=== PATIENT | male | born 1995 | race Caucasian/White ===

== ENCOUNTER 2017-07-26 21:29 | Emergency (ER) | payer MEDICAID, SELFPAY ==
[2017-07-26 21:30] VITALS: BP 108/58; PULSE 117; RESP 18; TEMP 37.4; O2SAT 95; BMI 22.8
--- NOTE | 2017-07-26 22:22 | ED.VISSUMM ---
- ER Visit Summary Date of Service: 07/26/17 Chief Complaint: I am sick History of Present Illness: The patient is a 22 M who states that last night he developed fever cough rhinorrhea headache and body aches. No rash or vomiting or diarrhea. No ear pain. No sore throat. Patient denies any photophobia or stiff neck. As I walked into the room the patient informs me he needs to be seen now or else he is leaving. He has been here 40 minutes with viral syndrome complaints in the peak influenza season on a Wednesday. Physical Examination: 99.3 heart rate 117 respirations are 18 pulse ox 95% blood pressure 108/58 Gen: Well-nourished well-developed Head: Normocephalic atraumatic Eyes: Perrl EOMI ENT: TMs clear congestion moist mucous membranes Neck: Supple no lymphadenopathy no JVD nontender CVS: Tachycardic regular rate rhythm no murmurs normal S1-S2 Respiratory: No distress clear to auscultation bilaterally chest nontender Abdomen: Soft nontender nondistended normal bowel sounds no masses Back: Nontender Extremity: Nontender no edema Skin: Normal color no rash Neuro: alert orientated ?3 CN II-XII intact normal strength sensation reflexes gait cerebellar Psych: Angry and rude Emergency Department Course and Treatment: Chest x-ray Tylenol and ibuprofen were ordered however the patient left the emergency room without telling anybody. I suspect he has influenza though the patient adamantly disagrees with that diagnosis. Impression:. Viral syndrome This note was generated with [employer] dictation software. It may contain incorrect words, spelling, and punctuation that were not noted in review of the chart prior to signing ED Disposition - Plan for ED Patient: Chief Complaint: Fever Referrals: Bruce Houston III, MD [Primary Care Provider] -
--- NOTE | 2017-07-26 22:32 | NURSING ---
after the pt was seen by the doctor I went into the pt room to give him his medication and let him know that he would be getting a chest xray. the pt was not in the room and neither was his family member. I looked in the restrooms and waiting room for the pt and gave him 10 minutes to get back to his room. the pt never came back into his room and left without me giving his medications and xray. the doctor was made aware.
== END 2017-07-26 22:46 | disposition home or self-care (01) ==
LOC: ED 22:42
PROVIDERS: Emergency Provider Emergency Medicine; Family Provider Family Medicine; PCP Family Medicine
DX: B34.9 Viral infection, unspecified (principal); R50.9 Fever, unspecified; R05 Cough; R51 Headache; M79.1 Myalgia; Z72.0 Tobacco use
CPT/HCPCS: 99282

== ENCOUNTER 2021-04-21 06:30 | Emergency (ER) | payer SELFPAY ==
[2021-04-21 06:31] VITALS: BP 128/78; PULSE 57; RESP 18; TEMP 36.6; O2SAT 97; BMI 24.3
--- NOTE | 2021-04-21 07:17 | EDS_ITS ---
HPI History of Present Illness Chief Complaint: Back Narrative Narrative: 26-year-old male presenting with lower to mid back pain. He states that started hurting this morning when he woke up. He denies any injury that he knows of. He states this is happened to him a couple of times over the past 2 weeks. He does not have any nausea or vomiting. He denies any urinary complaints. He has no diarrhea or constipation. He does not have any paresthesias. No loss of bladder or bowel control. 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 He states this hurts worse when he is twisting his trunk. It is better when he is resting. He states that his girlfriend was going to give him a heating pad but he did not want this. He states that he did not take ibuprofen or Tylenol because he thought this would make it worse. PFSH PFSH Home Medications NK 07/26/17 [History Last Taken Unknown] cyclobenzaprine 10 mg PO TID PRN #20 tablet 04/21/21 [Rx Last Taken Unknown] naproxen [Naprosyn] 500 mg PO BID PRN #30 tab 04/21/21 [Rx Last Taken Unknown] Allergy/AdvReac Type Severity Reaction Status Date / Time No Known Allergies Allergy Verified 07/26/17 21:33 Surgical History History of ankle surgery Social History Smoking Status: Unknown if ever smoked ROS [facility] ED Constitutional Constitutional ED: Denies chills or fever(s) Eyes Eyes: Denies blurry vision or change in vision ENT ENT ED: Denies rhinorrhea or sore throat Cardiovascular Cardiovascular: Denies chest pain or palpitations Respiratory/Chest Respiratory/Chest: Denies dyspnea or sputum Gastrointestinal Gastrointestinal: Denies abdominal pain, constipation, diarrhea, nausea or vomiting Genitourinary Genitourinary ED: Denies dysuria, hematuria or urinary frequency Musculoskeletal Musculoskeletal: Reports back pain; Denies arthralgias Integumentary Denies rash Neurologic Neurologic: Denies headache(s) or paresthesias Psychiatric Psychiatric: Denies anxiety or depression EXAM Physical Exam Const Vital Signs: 04/21/21 06:31 Temperature 97.9 F Temperature Source Temporal Pulse Rate 57 L Respiratory Rate 18 Blood Pressure 128/78 H Blood Pressure Mean 94 Pulse Ox 97 Oxygen Delivery Method Room Air Positive well nourished General Appearance ED: NAD HEENT Reports moist mucous membranes Negative for trauma Eyes PERRL and EOMs intact bilaterally Resp normal respiratory effort GI normal to inspection, nondistended, normoactive bowel sounds Back/Spine Back/Spine Narrative: Tenderness to palpation bilaterally at the level of T12-L1 and the paraspinal musculature. No midline spinal tenderness, deformity, step- off. Patient able to move from lying, to sitting, to standing without difficulty. He has no CVA tenderness. Neuro oriented x3 Sensorium / Orientation: alert Motor Exam: strength 5/5 throughout Psych mental status grossly normal Skin no rashes or lesions noted MDM MDM MDM Narrative Medical decision making narrative: Patient's examination is consistent with m usculoskeletal tenderness. There is no midline spinal tenderness. The pain is symmetrically tender bilaterally with palpation to the paraspinal musculature. Patient does not seem to have any difficulty lying, sitting, or standing. He has no neurologic deficits. He does not have any CVA tenderness to suggest a kidney stone and it is bilateral so this is less likely. Patient was counseled that this is generally treated with muscle relaxers and anti-inflammatories. I also explained to him that typically this require follow-up with his primary care if is not improving he can physical therapy. He stated that he used to see Dr. Houston but he is retired and has not established with a new doctor yet. I offered to give him Norflex and Toradol in the ED, however he stated that he wanted to go to work today and he did not want a muscle relaxer. I offered to give him a work note so that he could stay at home and rest, however he stated that he needed to go to work. I then offered to give him a shot of Toradol and provide a muscle relaxer prescription for him however at this point the patient stated that he did not want to stay anymore. He became angry and walked out of the room. I will send a prescription for Naprosyn and Flexeril should he want this. Impression: 1. Back strain Discharge Plan Triage Chief Complaint: Back ED Provider: Ty Osullivan Dx/Rx/DC Orders Instructions: ED Back Sprain/Strain Prescriptions: New cyclobenzaprine 10 mg tablet 10 mg PO TID PRN (Reason: Muscle Spasm) Qty: 20 RF: 0 naproxen [Naprosyn] 500 mg tablet 500 mg PO BID PRN (Reason: pain) Qty: 30 RF: 0 No Action NK RF: 0 Primary Care Provider: NOT,DEFINED Referrals: NOT,DEFINED [Primary Care Provider] - Disposition Disposition: Elopement
--- NOTE | 2021-04-21 08:13 | ED.RN ---
PT LEFT WHILE BEING SEEN BY THE DR. PT DID LEFT PRIOR TO RECEIVING D/C PAPERS.
== END 2021-04-21 07:05 | disposition left against medical advice (07) ==
PROVIDERS: Emergency Provider Student in an Organized Health Care Education/Training Program
DX: S39.012A Strain of muscle, fascia and tendon of lower back, initial encounter (principal); X58.XXXA Exposure to other specified factors, initial encounter; Y93.9 Activity, unspecified; Y92.9 Unspecified place or not applicable; Y99.9 Unspecified external cause status
CPT/HCPCS: 99282

== ENCOUNTER 2023-05-04 13:58 | Emergency (ER) | payer SELFPAY ==
[2023-05-04 13:59] VITALS: BP 112/50; PULSE 66; RESP 18; TEMP 36.6; O2SAT 96; BMI 24.2
--- NOTE | 2023-05-04 14:26 | RAD_ITS ---
STUDY: X-RAY - UNILATERAL RIBS ( LEFT ) WITH CHEST REASON FOR EXAM: Male, 28 years old. Pain. TECHNIQUE - RIBS: 4 views of the left ribs. TECHNIQUE - CHEST: Single PA view of the chest. COMPARISON: None. FINDINGS - RIBS: Normal visualized left ribs without a demonstrated fracture. FINDINGS - CHEST: The lungs are clear and expanded. There is no demonstrated pleural abnormality. Normal size heart. Normal mediastinum and nicanor. Normal visualized pulmonary arteries. Normal visualized aortic arch and descending thoracic aorta. Normal visualized thoracic spine. Normal visualized ribs, clavicles, and shoulders. There is no demonstrated abnormality of the visualized soft tissue structures of the upper abdomen. RAD/Ribs Uni Min 3V w/PA Chest IMPRESSION: RIBS: Normal x-ray examination of the left ribs. CHEST: Normal x-ray examination of the chest. Electronically Signed: Rober Okeefe MD at 15:26 EST ,
--- NOTE | 2023-05-04 14:27 | EDS_ITS ---
HPI History of Present Illness Chief Complaint: Chest Other Detail of Chief Complaint: Left rib pain Informant: patient Onset/Context/Timing Onset: Days (6 days ago) Context: Gradual Onset Narrative Narrative: Patient presents with a 6-day history of left lower rib pain that wraps around his side. He states he works out on a regular basis but took and Wed day off because of pain. He states he now has increasing pain with deep breathing or twisting. He is taken a total of 3 doses of ibuprofen in the past week for his pain. There was no fall or direct trauma. PFSH PFSH Medical History no medical history no medical history Home Medications cyclobenzaprine 10 mg tablet 10 mg PO TID PRN Muscle Spasm #20 TABLETS 04/21/21 [Rx Last Taken Unknown] naproxen 500 mg tablet (Naprosyn) 500 mg PO BID PRN pain #30 tabs 04/21/21 [Rx Last Taken Unknown] cyclobenzaprine 10 mg tablet 10 mg PO TID PRN Muscle Spasm #20 TABLETS 05/04/23 [Rx Last Taken Unknown] naproxen 500 mg tablet (Naprosyn) 500 mg PO BID PRN pain #20 tabs 05/04/23 [Rx Last Taken Unknown] Allergy/AdvReac Type Severity Reaction Status Date / Time No Known Allergies Allergy Verified 05/04/23 13:58 Surgical History History of ankle surgery Social History Smoking Status: Unknown if ever smoked ROS [facility] ED Constitutional Constitutional ED: Denies chills or fever(s) Eyes Eyes: Denies discharge from eye(s) ENT ENT ED: Denies discharge from eye(s), rhinorrhea or sore throat Cardiovascular Cardiovascular: Reports chest pain; Denies palpitations Respiratory/Chest Respiratory/Chest: Reports dyspnea; Denies cough Gastrointestinal Gastrointestinal: Denies abdominal pain, nausea or vomiting Musculoskeletal Musculoskeletal: Denies extremity pain Integumentary Denies Abrasions or rash Neurologic Neurologic: Denies headache(s) or weakness Psychiatric Psychiatric: Denies anxiety or depression Allergic/Immunologic Allergic/Immunologic ED: Denies lip swelling or urticaria EXAM Physical Exam Const Vital Signs: 05/04/23 13:59 Temperature 97.9 F Temperature Source Temporal Pulse Rate 66 Respiratory Rate 18 Blood Pressure 112/50 L Blood Pressure Mean 70 Pulse Ox 96 Oxygen Delivery Method Room Air Positive well nourished and well developed General Appearance ED: well developed HEENT Reports moist mucous membranes Eyes EOMs intact bilaterally Chest Wall inspection of chest normal and palpation of chest normal Resp normal respiratory effort and clear to auscultation bilaterally Cardio regular rate and regular rhythm GI non-tender Palpation: soft Back/Spine Back/Spine Narrative: Tenderness palpation over the left lateral lower chest wall, near where the cartilage and bone meet in the rib cage. No crepitus. No overlying skin changes. Extremity normal to inspection Neuro oriented x3 and no sensory deficits noted Motor Exam: strength 5/5 throughout Psych mental status grossly normal Skin no rashes or lesions noted MDM MDM MDM Narrative Medical decision making narrative: Rib series with chest x-ray obtained to evaluate for obvious rib fracture, dislocation, pneumothorax. Rib series with chest x-ray per my interpretation reveals no obvious bony fracture or displacement. No evidence of pneumothorax. Test results discussed with the patient. He will be started on anti- inflammatories along with muscle relaxers. We discussed the sedating side effects of the muscle relaxer. He has been seen at [facility] previously will be referred to Dr. Corral, next [facility] doc on the no doc list. Discharge Plan Triage Chief Complaint: Chest Other ED Provider: Charlene Rodriguez Dx/Rx/DC Orders Clinical Impression: Strain of chest wall Instructions: ED Chest Wall Strain Prescriptions: New naproxen [Naprosyn] 500 mg tablet 500 mg PO BID PRN (Reason: pain) Qty: 20 0RF cyclobenzaprine 10 mg tablet 10 mg PO TID PRN (Reason: Muscle Spasm) Qty: 20 0RF No Action cyclobenzaprine 10 mg tablet 10 mg PO TID PRN (Reason: Muscle Spasm) Qty: 20 0RF naproxen [Naprosyn] 500 mg tablet 500 mg PO BID PRN (Reason: pain) Qty: 30 0RF Primary Care Provider: Care Physician,No Primary Referrals: Rosemary Corral MD [Med Staff - Freelance Director] - 10-14 Days if not better Care Physician,No Primary [Primary Care Provider] - Disposition Disposition: Home, Self Care
[2023-05-04] MEDS: Naproxen 500 MG Tablet PO (15:40)
== END 2023-05-04 16:43 | disposition home or self-care (01) ==
PROVIDERS: Emergency Provider Emergency Medicine; Visit Provider Emergency Medicine
DX: S29.011A Strain of muscle and tendon of front wall of thorax, initial encounter (principal); X58.XXXA Exposure to other specified factors, initial encounter; Z79.899 Other long term (current) drug therapy
CPT/HCPCS: 71101; 99283

== ENCOUNTER 2023-08-15 17:19 | Emergency (ER) | payer BC, SELFPAY ==
[2023-08-15 17:19] VITALS: BP 178/127; PULSE 87; RESP 18; TEMP 36.3; O2SAT 98; BMI 24.6
--- NOTE | 2023-08-15 17:39 | EX.ED.UPPERE ---
HPI <JANETH Pillai - Last Filed: 08/15/23 18:17> History of Present Illness Chief Complaint: Upper Extremity Injury Narrative Narrative: 28-year-old [id number] male has had 2 to 3 weeks of left wrist pain along the base of the thumb. No injury. 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 He states the wrist pain is exacerbated with any motion of his thumb. He has no weakness or numbness or tingling. He is taking Tylenol. PFSH <JANETH Pillai - Last Filed: 08/15/23 18:17> [facility] Home Medications cyclobenzaprine 10 mg tablet 10 mg PO TID PRN Muscle Spasm #20 TABLETS 04/21/21 [Rx Last Taken Unknown] naproxen 500 mg tablet (Naprosyn) 500 mg PO BID PRN pain #30 tabs 04/21/21 [Rx Last Taken Unknown] cyclobenzaprine 10 mg tablet 10 mg PO TID PRN Muscle Spasm #20 TABLETS 05/04/23 [Rx Last Taken Unknown] naproxen 500 mg tablet (Naprosyn) 500 mg PO BID PRN pain #20 tabs 05/04/23 [Rx Last Taken Unknown] Allergy/AdvReac Type Severity Reaction Status Date / Time No Known Allergies Allergy Verified 05/04/23 13:58 Surgical History History of ankle surgery Social History Smoking Status: Current every day smoker tobacco type: e-cigarettes ROS <JANETH Pillai - Last Filed: 08/15/23 18:17> ROS ED ROS Narrative Neuro: Negative for motor/sensory dysfunction. Skin: Negative for rash. Musc: Positive for left wrist pain. No trauma. EXAM <JANETH Pillai - Last Filed: 08/15/23 18:17> Physical Exam Narrative Exam Narrative: CONST: Patient sitting in no acute distress. EYES: Normal inspection. NECK: Normal inspection. SKIN: Color normal, no rash, warm, dry, intact. EXTREMITIES: Normal appearance bilateral upper extremities. Tender along the tendons at the base of the thumb. No scaphoid tenderness. No hand tenderness. Full range of motion shoulder elbow wrist and hand. Normal motor and sensory function in median radial ulnar distributions. Patient can move his thumb but refuses to do the Duyen test saying this movement reproduces pain. 2+ radial pulse and brisk cap refill. NEURO: Oriented x4. PSYCH: Normal affect. Const Vital Signs: 08/15/23 17:19 Temperature 97.4 F L Temperature Source Temporal Pulse Rate 87 Respiratory Rate 18 Blood Pressure 178/127 H Blood Pressure Mean 144 Pulse Ox 98 Oxygen Delivery Method Room Air [facility] <JANETH Pillai - Last Filed: 08/15/23 18:17> [facility] Narrative Medical decision making narrative: Patient has atraumatic left wrist pain along the base of his thumb consistent with de Quervain's tenosynovitis. Neurovascular status intact. No trauma or indication for x-rays. I discussed symptomatic management with rest, ice, NSAIDs, and provided a thumb spica splint. Orthopedic referral given if needed. He was discharged in stable condition. <Dr. Tawanda Kline DO - Last Filed: 08/15/23 21:17> [facility] Narrative Medical decision making narrative: Patient has atraumatic left wrist pain along the base of his thumb consistent with de Quervain's tenosynovitis. Neurovascular status intact. No trauma or indication for x-rays. I discussed symptomatic management with rest, ice, NSAIDs, and provided a thumb spica splint. Orthopedic referral given if needed. He was discharged in stable condition. ED attending note: I evaluated the patient in conjunction with the FRANKY. I agree with his/her statements and above findings. I have personally performed a face to face assessment of the patient and have reviewed the FRANKY Note. I performed a substantive portion of the visit including all aspects of the following. I personally saw the patient performed chart review, physical exam, reviewed labs, imaging (if obtained), and formulated a treatment and management plan. This note was generated with [employer] dictation software. It may contain incorrect words, spelling, and punctuation that were not noted in review of the chart prior to signing. Discharge Plan Triage Chief Complaint: Upper Extremity Injury ED Midlevel Provider: Olga Lidia Roe ED Provider: Tawanda Kline Dx/Rx/DC Orders Clinical Impression: De Quervain's tenosynovitis, left Instructions: De Quervain Tenosynovitis Prescriptions: No Action cyclobenzaprine 10 mg tablet 10 mg PO TID PRN (Reason: Muscle Spasm) Qty: 20 0RF naproxen [Naprosyn] 500 mg tablet 500 mg PO BID PRN (Reason: pain) Qty: 30 0RF naproxen [Naprosyn] 500 mg tablet 500 mg PO BID PRN (Reason: pain) Qty: 20 0RF cyclobenzaprine 10 mg tablet 10 mg PO TID PRN (Reason: Muscle Spasm) Qty: 20 0RF Stand Alone Forms: ED Work / School Excuse Primary Care Provider: Care Physician,No Primary Referrals: Tima Allen DO [Med Staff - Active Staff] - Care Physician,No Primary [Primary Care Provider] - Activity Restrictions/Additional Instructions: The tendons along your thumb and wrist are swollen and inflamed. This is treated with rest, ice packs, ibuprofen 600 mg every 6 hours. You can alternate with Tylenol if needed. Use the splint to keep the thumb from moving. If this does not improve with conservative treatment see the orthopedic doctor. Disposition Disposition: Home, Self Care Discharge Date/Time: 08/15/23 19:03
--- OUTSIDE RECORDS SUMMARY | 2023-08-15 17:57 | XMS RPT_ITS | CCD ---
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 Name Role Phone PHYSICIAN, NOT RECORDED Primary Care Physician U navailable Problems Problem Classification Problem Date Documented Da te Episodic/Chronic Sprains and strains (1 source) Sprain of ankle; Translations: [Sprain of unspecified ligament of unspecified ankle, initial encounter] Onset: 11-08-2021 Episodic Results Test Name Value Interpretation Reference Range Facil ity Vital Signs Date Time Vital Sign Value Performing Clinician Faci lity 11-08-2021 20:57-0400 Body temperature 98.24 [degF] DR BRIAN LANE MD [facility] 11-08-2021 20:57-0400 Diastolic blood pressure 78 mm[Hg] DR BRIAN LANE MD [facility] 11-08-2021 20:57-0400 Heart rate 91 /min DR BRIAN LANE MD [facility] 11-08-2021 20:57-0400 Mean blood pressure 92 mm[Hg] DR BRIAN LANE MD [facility] 11-08-2021 20:57-0400 Respiratory rate 20 /min DR BRIAN LANE MD [facility] 11-08-2021 20:57-0400 Systolic blood pressure 119 mm[Hg] DR BRIAN LANE MD [facility] Encounters Encounter Date Encounter Type Care Provider Facility Start: 11-08-2021 End: 11-08-2021 Emergency department patient visit DR BRIAN LANE MD [facility] Social History Date Type Detail Facility Tobacco smoking status No Smoking Status Entered [facility] Sex Assigned At Male [facility] Functional Status Date Assessment Result Facility 11-08-2021 Functional Status Activity Veronica tance Independent [facility] 11-08-2021 Functional Status Standard Safet y ID band on, Call device within reach, Bed in low position, Wheels locked, Upper/Half-Length side-rails up, Phone within reach, Bedside Cart Locked [facility] Mental Status Date Assessment Result Facility 11-08-2021 Mental Status Orientation Oriented x 4 [facility] 11-08-2021 Mental Status [facility] Hospital Discharge instructions 11-08-2021 Note Date & Type Note Facility 11-08-2021 Hospital Discharg e instructions Patient Education 11/08/2021 21:53:08 Ankle Sprain (Adult) Ankle Sprain (Adult) An ankle sprain is a stretching or tearing of the ligaments that hold the ankle joint together. There are no broken bones. An ankle sprain is a common injury for both children and adults. It happens when the ankle turns, twists, or rolls in an awkward way. This can be caused by a sports injury. Or it can happen from doing something as simple as stepping on an uneven surface. Ligaments are made of tough connective tissue. Normally, ligaments stretch a certain amount and then go back to their normal place. A sprain happens when a ligament is forced to stretch more than the normal amount. A severe sprain can actually tear the ligaments. If you have a severe sprain, you may have felt or heard something like a pop when you were injured. Ankle sprains are given a grade depending on whether they are mild, moderate, or severe: Grade 1 sprain. A mild sprain with minor stretching and damage to the ligament. Grade 2 sprain. A moderate sprain where the ligament is partly torn. Grade 3 sprain. The most severe kind of sprain. The ligament is completely torn. Most sprains take about 4 to 6 weeks to heal. A severe sprain can take several months to recover. Your healthcare provider may order X-rays to be sure you don t have a fracture, or broken bone. The injured area will feel sore. Swelling and pain may make it hard to walk. You may need crutches if walking is painful. Or your provider may have you use a cast boot or air splint. This will depend on the grade of ankle sprain that you have. Home care For a Grade 1 sprain, use RICE (rest, ice, compression, and elevation): Rest your ankle. Don t walk on it. Ice should be used right away to help control swelling. Place an ice pack over the injured area for 20 minutes. Do this every 3 to 6 hours for the first 24 to 48 hours. Keep using ice packs to ease pain and swelling as needed. To make an ice pack, put ice cubes in a plastic bag that seals at the top. Wrap the bag in a clean, thin towel or cloth. Never put ice or an ice pack directly on the skin. The ice pack can be put right on the cast, bandage, or splint. As the ice melts, be careful that the cast, bandage, or splint doesn t get wet. If you have a boot, open it to apply an ice pack, unless told otherwise by your provider. Compression devices help to control swelling. They also keep the ankle from moving and support your injured ankle. These devices include dressings, bandages, and wraps. Elevate or raise your ankle above the level of your heart when sitting or lying down. This is very important for the first 48 hours. Follow the RICE guidelines for a Grade 2 sprain. This type of sprain will take longer to heal. Your provider may have you wear a splint, cast, or brace to keep your ankle from moving. If you have a Grade 3 sprain, you are at risk for long-term ankle instability. In rare cases, surgery may be needed. Your provider may have you wear a short leg cast or a walking boot for 2 to 3 weeks. After 48 hours, it may be helpful to apply heat for 20 minutes several times a day. You can do this with a heating pad or warm compress. Or you may want to go back and forth between using ice and heat. Never apply heat directly to the skin. Always wrap the heating pad or warm compress in a clean, thin towel or cloth. You may use deez-apj-xljbert pain medicine (NSAIDS or nonsteroidal anti-inflammatory drugs) to control pain, unless another pain medicine was prescribed. Talk with your provider before using these medicines if you have chronic liver or kidney disease, or have ever had a stomach ulcer or gastrointestinal bleeding. Follow any rehabilitation exercises your provider gives you. These can help you be more flexible and improve your balance and coordination. This is helpful in preventing long-term ankle problems. Prevention To help prevent ankle sprains, it s important to have good strength, balance, and flexibility. Be sure to: Always warm up before you exercise or do something very active Be careful when walking or running on uneven or cracked surfaces Wear shoes that are in good condition and fit well Listen to your body s signals to slow down when you are in pain or tired Follow-up care Any X-rays you had today don t show any broken bones, breaks, or fractures. Sometimes fractures don t show up on the first X-ray. Bruises and sprains can sometimes hurt as much as a fracture. These injuries can take time to heal completely. If your symptoms don t get better or they get worse, talk with your healthcare provider. You may need a repeat X-ray. Follow up with your healthcare provider, or as advised. Check for any warning signs listed below. When to seek medical advice Call your healthcare provider right away if any of these occur: Fever of 100.4 F (38 C) or higher, or as directed by your healthcare provider [place] The injury doesn t seem to be healing The swelling comes back The cast or splint has a bad smell The plaster cast or splint gets wet or soft The fiberglass cast or splint gets wet and does not dry for 24 hours The pain or swelling increases, or redness appears Your toes become cold, blue, numb, or tingly The skin is discolored (looks blue, purple, or hoff), has blisters, or is irritated You re-injure your ankle 0712-5720 [employer]. [address] [place] [address]. All rights reserved. This information is not intended as a substitute for professional medical care. Always follow your healthcare professional's instructions. Follow Up Care 11/08/2021 20:56:41 With:MICHELL BLUNT Address: [address] [place] [address] [address] [place] [address] Business (1) When:3-5 days Comments:Use Tylenol ibuprofen for pain, keep leg elevated with ice. You may use ankle splint. You may place weight on it as tolerated. If worsening pain or no improvement after 5 to 7 days please follow-up with orthopedics. [facility] Clinical Note 05-09-2021 Note Date & Type Note Facility 05-09-2021 Note Patient Outreach (NE TNAV) CHAD GA ([id number]) 1995 M Date Time Provider Department 05/09/21 MAHI RUTH During your visit today, we recorded the following information about you: Mahi Ruth Population Health Navigator 05/09/2021 9:01 AM Signed POPULATION HEALTH NAVIGATION OUTREACH Action/FY I spoke with patient scheduled him for a appointment and a financial clearance No care everywhere Updated PCP Contact made with patient or family member? YES Pt identified by name and : YES Outreach Outcome/Action Spoke to patient or caregiver: Patient scheduled PCP confirmed / updated Reason for Outreach Attribution: Provider Off-boarding Payer: No coverage found. Care Gap Reviewed:: Annual Wellness visit Reminder: Reminder note to check Health Maintenance for items below Health Maintenance items due: COVID-19 VACCINE(1) Never done HEPATITIS C SCREENING Never done HIV SCREENING Never done ONE PNEUMOVAX PRIOR TO AGE 65 Never done DTAP,TDAP,TD(7 - Td or Tdap) due on 09/25/2018 DEPRESSION SCREENING due on 03/21/2019 INFLUENZA(1) due on 02/12/2021 Advanced Directives Completed: Have you ever planned for future healthcare decisions with a power of contract attorney, living will, or advance directives? No. Please bring a copy to your next appointment or email to Referrals: N/A Message Sent to Practice: NO Navigation Signature: Mahi Ruth Population Health Navigator May 09, 2021 8:59 AM Allergies As of Date: 05/09/2021 (No Known Allergies) Date Reviewed: 01/14/2021 Reviewed by: Meg Owens Ma - Fully Assessed Reason for Visit: Population Health Navigation Outreach [[id number]] Cmt: Offboarding Prescriptions as of 05/09/2021 - sertraline (ZOLOFT) 100 mg tablet Take 1 tablet by mouth once daily. - hydrOXYzine pamoate (VISTARIL) 25 mg capsule Take 1 capsule by mouth three times daily as needed for Anxiety. - DM HB/PSEUDOEPHED/ACETAMIN/CP (TYLENOL COLD ORAL) Take by mouth. - MULTIVIT ANDMINERALS/FERROUS FUM (MULTI VITAMIN ORAL) Take 1 tablet by mouth once daily. Meds Comments as of 03/21/2018: Takes Biotin Problem List As Of Date 05/09/2021 Noted Resolved ATTN DEFICIT W HYPERACT [F90.9] DYSCHROMIA OTHER [L81.9] 09/25/2008 Well adolescent visit [Z00.3] 04/15/2010 Warts [B07.9] 04/15/2010 Anxiety and depression [F41.9, F32.A] 09/11/2014 Difficulty controlling anger [R45.4] 09/11/2014 Encounter Status:Closed by REX POPULATION HEALTH NAVIGATORMAHI on 05/09/21 [facility] Progress note 05-09-2021 Note Date & Type Note Facility 05-09-2021 Note HNO ID: [id number] Author: Mahi Ruth Population Health Navigator Service: ? Author Type: ? Type: Progress Notes Filed: 05/09/2021 9:01 AM Note Text: POPULATION HEALTH NAVIGATION OUTREACH Action/FYI I spoke with patient scheduled him for a appointment and a financial clearance No care everywhere Updated PCP Contact made with patient or family member? YES Pt identified by name and : YES Outreach Outcome/Action Spoke to patient or caregiver: Patient scheduled PCP confirmed / updated Reason for Outreach Attribution: Provider Off-boarding Payer: No coverage found. Care Gap Reviewed:: Annual Wellness visit Reminder: Reminder note to check Health Maintenance for items below Health Maintenance items due: COVID-19 VACCINE(1) Never done HEPATITIS C SCREENING Never done HIV SCREENING Never done ONE PNEUMOVAX PRIOR TO AGE 65 Never done DTAP,TDAP,TD(7 - Td or Tdap) due on 09/25/2018 DEPRESSION SCREENING due on 03/21/2019 INFLUENZA(1) due on 02/12/2021 Advanced Directives Completed: Have you ever planned for future healthcare decisions with a power of contract attorney, living will, or advance directives? No. Please bring a copy to your next appointment or email to Referrals: N/A Message Sent to Practice: NO Navigation Signature: Mahi Ruth Population Health Navigator May 09, 2021 8:59 AM [facility] Progress note 01-15-2021 Note Date & Type Note Facility 01-15-2021 Note HNO ID: [id number] Author: Brandie Wright APRN.CNP Service: ? Author Type: Nurse Practitioner Type: Progress Notes Filed: 01/15/2021 8:48 AM Note Text: CC: Patient presents with: warts HPI Chad Ga is a 25 year old male who presents today for above. Patient reports numerous warts that keep popping up. He treats with OTC cryo but doesn't get rid of them completely. Currently has warts on right thumb and a few on the right leg. The warts on the thumb have been especially resistant to OTC treatment. He denies immunosuppression or frequent infections. REVIEW OF SYSTEMS See HPI PAST MEDICAL HISTORY Diagnosis Date - Anxiety and depression 09/11/2014 - Attention deficit disorder with hyperactivity(314.01) - Difficulty controlling anger 09/11/2014 PAST SURGICAL HISTORY Procedure Laterality Date - LAPAROSCOPY, SURGICAL, APPENDECTOMY 06-07-08 - PAST SURGICAL HISTORY OF Left 2017 Left ankle surgery ALLERGIES Patient has no known allergies. MEDICATIONS sertraline (ZOLOFT) 100 mg tablet Take 1 tablet by mouth once daily. hydrOXYzine pamoate (VISTARIL) 25 mg capsule Take 1 capsule by mouth three times daily as needed for Anxiety. DM HB/PSEUDOEPHED/ACETAMIN/CP (TYLENOL COLD ORAL) Take by mouth. MULTIVIT ANDMINERALS/FERROUS FUM (MULTI VITAMIN ORAL) Take 1 tablet by mouth once daily. FAMILY HISTORY Problem Relation Age of Onset - Cancer Father 55 Throat - Diabetes Maternal Grandfather - Cancer Paternal Grandfather - Cancer Paternal Aunt Social History Tobacco Use - Smoking status: Current Some Day Smoker - Smokeless tobacco: Never Used Substance Use Topics - Alcohol use: Yes Comment: 1-2 x per week - Drug use: No PHYSICAL EXAM BP 128/70 Pulse 82 Temp 36.3 ?C (97.4 ?F) (Temporal) Resp 14 Wt 72.6 kg (160 lb) BMI 24.33 kg/m? General Appearance: well appearing, in no acute distress, alert We discussed risks and benefits of cryotherapy as well as other options for wart treament: agreed to proceed. 6 sec freeze twice to each area except for calloused area on right thumb. Advised patient this was not amenable to cryo due to large callus, recommend referral to dermatology since it has been resistant. ASSESSMENT/PLAN: 1. Viral warts, unspecified type - ICD9: 078.10, ICD10: B07.9 Reviewed skin care and when to call the office - CONSULT TO DERMATOLOGY for wart on thumb that was not treated with cryotherapy due to large callu Prescription instructions reviewed with patient as applicable. Potential red flag symptoms discussed with the patient. Reviewed appropriate action plan to take if red flag symptoms occur. Patient agreeable to treatment plan. Brandie Wright APRN.[facility] Evaluation + Plan note Note Date & Type Note Facility Evaluation + Plan note No data available for this section [facility] Progress note Note Date & Type Note Facility Progress note No data available for this section [facility] Tete Summary Purpose Family History No Family History Records FoundNo Family History Records Found Advance Directives No Advanced Directives Records FoundNo Advanced Directives Records Found Additional Source Comments (unrecognized sect ion and content) No Status Records FoundNo Status Records Found INFORMATION SOURCE (unrecogn ized section and content) DATE CREATED AUTHOR AUTHOR'S ORGANIZ ATION 11/19/2021 [facility] ([place]) Care Team (unrecognized sect ion and content) Personnel Name: PHYSICIAN, NOT RECORDED FOR RECORDS PERTAINING TO PATIENTS WHO ARE OR HAVE BEEN ENROLLED IN A CHEMICAL DEPENDENCY/SUBSTANCEABUSE PROGRAM, SOME INFORMATION MAY BE OMITTED. This clinical summary was aggregated from multiple sources. Caution should be exercised in using it in the provision of clinical care. This summary normalizes information from multiple sources, and as a consequence, information in this document may materially change the coding, format and clinical context of patient data. In addition, data may be omitted in some cases. CLINICAL DECISIONS SHOULD BE BASED ON THE PRIMARY CLINICAL RECORDS. [facility] [employer] [facility]. provides no warranty or guarantee of the accuracy or completeness of information in this document.
[2023-08-15 18:21] VITALS: BP 133/85; PULSE 74; RESP 16; TEMP 36.8; O2SAT 99
== END 2023-08-15 19:03 | disposition home or self-care (01) ==
PROVIDERS: Emergency Provider Emergency Medicine; Visit Provider Emergency Medicine
DX: M65.4 Radial styloid tenosynovitis [de Quervain] (principal); F17.290 Nicotine dependence, other tobacco product, uncomplicated; Z79.899 Other long term (current) drug therapy
CPT/HCPCS: 99283